=== PATIENT | female | born 1980 | race Hispanic/Latino ===

== ENCOUNTER 2019-07-03 14:38 | Emergency (ER) | payer OTHER ==
[2019-07-03] MEDS ORDERED: LIDOCAINE 1% MPF 5 ML VIAL ONE (15:05)
[2019-07-03] MEDS ORDERED: ONDANSETRON 4 MG (ODT) TAB ONE (15:06)
[2019-07-03] MEDS ORDERED: HYDROCODONE/APAP 10/325 TAB ONE (15:06)
[2019-07-03 15:42] LABS: Urine Blood NEGATIVE (NEG); Urine Glucose NEGATIVE (NEG); Urine Protein TRACE (NEG); Urine Specific Gravity >1.030 (1.005-1.030)
[2019-07-03] MEDS ORDERED: SMZ./TMP. 800/160 MG TABLET ONE (15:45)
[2019-07-03] MEDS ORDERED: DOXYCYCLINE 100 MG CAP PO ONE (15:45)
--- NOTE | 2019-07-03 15:47 | ER ---
Nurse's Notes [facility] Name: Jesica Nixon Age: 39 yrs Sex: Female : 1980 Arrival Date: 07/03/2019 Time: 14:41 Bed 9 Private MD: Diagnosis: Cutaneous abscess of buttock Presentation: 07/03 14:42 Presenting complaint: Patient states: "I have a cyst on the upper part of my butt sv cheeks.". Transition of care: patient was not received from another setting of care. Onset of symptoms is unknown. Risk Assessment: Do you want to hurt yourself or someone else? Patient reports no desire to harm self or others. Care prior to arrival: None. 14:42 Method Of Arrival: Ambulatory sv 14:42 Acuity: DONOVAN 3 sv 15:00 Initial Sepsis Screen: Does the patient meet any 2 criteria? No. Patient's initial tw2 sepsis screen is negative. Does the patient have a suspected source of infection? Yes: Skin breakdown/wound. Triage Assessment: 14:44 General: Appears in no apparent distress. uncomfortable, Behavior is calm, cooperative, sv appropriate for age. Pain: Complains of pain in buttocks. Neuro: Level of Consciousness is awake, alert, obeys commands, Gait is steady. Respiratory: Respiratory effort is even, unlabored. 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 - Social history:: Smoking status: . - Ebola Screening: : Patient denies travel to an Ebola-affected area in the 21 days before illness onset. - Family history:: not pertinent. Screenin:00 Abuse screen: Denies threats or abuse. Nutritional screening: No deficits noted. tw2 Tuberculosis screening: No symptoms or risk factors identified. Fall Risk None identified. Assessment: 14:50 General: Appears in no apparent distress. Behavior is calm, cooperative, appropriate tw2 for age. Pain: Complains of pain in gluteal cleft. Neuro: Level of Consciousness is awake, alert, obeys commands, Oriented to person, place, time, situation. Cardiovascular: Patient's skin is warm and dry. Respiratory: Airway is patent Respiratory effort is even, unlabored, Respiratory pattern is regular, symmetrical. GI: No signs and/or symptoms were reported involving the gastrointestinal system. : No signs and/or symptoms were reported regarding the genitourinary system. EENT: No signs and/or symptoms were reported regarding the EENT system. Derm: Reports increased pain. Musculoskeletal: Range of motion: intact in all extremities. 15:43 Reassessment: Patient appears in no apparent distress at this time. No changes from tw2 previously documented assessment. Patient and/or family updated on plan of care and expected duration. Pain level reassessed. Patient is alert, oriented x 3, equal unlabored respirations, skin warm/dry/pink. 16:11 Reassessment: Patient appears in no apparent distress at this time. No changes from tw2 previously documented assessment. Patient and/or family updated on plan of care and expected duration. Pain level reassessed. Patient is alert, oriented x 3, equal unlabored respirations, skin warm/dry/pink. Vital Signs: 14:43 BP 114 / 85; Pulse 96; Resp 16; Temp 98.4(O); Pulse Ox 100% ; Weight 87.54 kg; Height 5 sv ft. 5 in. (165.10 cm); 14:43 Body Mass Index 32.12 (87.54 kg, 165.10 cm) sv ED Course: 14:41 Patient arrived in ED. mr 14:43 Triage completed. sv 14:44 Arm band placed on. sv 14:57 Praneeth Chong MD is Attending Physician. shireen 14:59 Rosa Perez, YOVANNY is Primary Nurse. tw2 15:00 Placed in gown. Bed in low position. Side rails up X 1. Adult w/ patient. Warm blanket tw2 given. 15:42 No provider procedures requiring assistance completed. Assist provider with tw2 cardioversion Assist provider with eye exam served as corn shredder during visual examination of abscess on gluteal cleft. Patient did not have IV access during this emergency room visit. 15:46 Og Driver MD is Referral Physician. [facility] 15:47 Referral Physician role handed off by Og Driver MD [facility] 15:47 Og Driver MD is Referral Physician. shireen Administered Medications: 15:08 Drug: Zofran 4 mg Route: PO; tw2 15:34 Follow up: Response: No adverse reaction; Nausea is decreased tw2 15:09 Drug: [place] 10 mg-325 mg 1 tabs Route: PO; tw2 15:34 Follow up: Response: No adverse reaction; Pain is decreased; RASS: Alert and Calm (0) tw2 15:34 CANCELLED (md discretion): Lidocaine (1 %) 5 mg Infiltration once tw2 15:46 Drug: Doxycycline 200 mg Route: PO; tw2 16:11 Follow up: Response: No adverse reaction tw2 15:46 Drug: Bactrim (160 mg-800 mg (DS) 1 tablet Route: PO; tw2 16:11 Follow up: Response: No adverse reaction tw2 Outcome: 15:46 Discharge ordered by . shireen 16:11 Discharged to home ambulatory, with family. tw2 16:11 Condition: stable 16:11 Discharge instructions given to patient, family, Instructed on discharge instructions, follow up and referral plans. no drinking with medication, no driving heavy equipment, medication usage, wound care, Demonstrated understanding of instructions, follow-up care, medications, wound care, Prescriptions given X 3. 16:12 Patient left the ED. tw2 Signatures: Vanessa Will, RN RN Praneeth Johnson MD MD cha Rivera, Mary mr Wise, Tara RN RN tw2 Corrections: (The following items were deleted from the chart) 14:44 14:43 Pulse 96bpm; Resp 16bpm; Pulse Ox 100%; Temp 98.4F Oral; 87.54 kg; Height 5 ft. 5 sv in.; BMI: 32.1; sv
--- NOTE | 2019-07-03 15:48 | EDPHYS ---
Physician Documentation [facility] Name: Jesica Nixon Age: 39 yrs Sex: Female : 1980 Arrival Date: 07/03/2019 Time: 14:41 Bed 9 Private MD: ED Physician Praneeth Chong HPI: 07/03 15:43 This 39 yrs old Female presents to ER via Ambulatory with complaints of shireen Abscess. 15:43 The patient presents with an abscess of the . Description: The affected area is small, shireen moderate sized, confluent, draining. Onset: The symptoms/episode began/occurred 5 day(s) ago. Possible cause(s): unknown. Associated signs and symptoms: The patient has no apparent associated signs or symptoms. Severity of symptoms: At their worst the symptoms were mild, moderate, in the emergency department the symptoms are unchanged. The patient has not experienced similar symptoms in the past. 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 - Social history:: Smoking status: . - Ebola Screening: : Patient denies travel to an Ebola-affected area in the 21 days before illness onset. - Family history:: not pertinent. ROS: 15:43 Constitutional: Negative for fever, chills, and weight loss, Eyes: Negative for injury, shireen pain, redness, and discharge, ENT: Negative for injury, pain, and discharge, Neck: Negative for injury, pain, and swelling, Cardiovascular: Negative for chest pain, palpitations, and edema, Respiratory: Negative for shortness of breath, cough, wheezing, and pleuritic chest pain, Abdomen/GI: Negative for abdominal pain, nausea, vomiting, diarrhea, and constipation, Back: Negative for injury and pain, : Negative for injury, bleeding, discharge, and swelling, MS/Extremity: Negative for injury and deformity, Neuro: Negative for headache, weakness, numbness, tingling, and seizure, Psych: Negative for depression, anxiety, suicide ideation, homicidal ideation, and hallucinations, Allergy/Immunology: Negative for hives, rash, and allergies, Endocrine: Negative for neck swelling, polydipsia, polyuria, polyphagia, and marked weight changes, Hematologic/Lymphatic: Negative for swollen nodes, abnormal bleeding, and unusual bruising. 15:43 Skin: Positive for of the coccyx and gluteal cleft. Exam: 15:43 Constitutional: This is a well developed, well nourished patient who is awake, alert, shireen and in no acute distress. Head/Face: Normocephalic, atraumatic. Eyes: Pupils equal round and reactive to light, extra-ocular motions intact. Lids and lashes normal. Conjunctiva and sclera are non-icteric and not injected. Cornea within normal limits. Periorbital areas with no swelling, redness, or edema. ENT: Nares patent. No nasal discharge, no septal abnormalities noted. Tympanic membranes are normal and external auditory canals are clear. Oropharynx with no redness, swelling, or masses, exudates, or evidence of obstruction, uvula midline. Mucous membranes moist. Neck: Trachea midline, no thyromegaly or masses palpated, and no cervical lymphadenopathy. Supple, full range of motion without nuchal rigidity, or vertebral point tenderness. No Meningismus. Chest/axilla: Normal chest wall appearance and motion. Nontender with no deformity. No lesions are appreciated. Cardiovascular: Regular rate and rhythm with a normal S1 and S2. No gallops, murmurs, or rubs. Normal PMI, no JVD. No pulse deficits. Respiratory: Lungs have equal breath sounds bilaterally, clear to auscultation and percussion. No rales, rhonchi or wheezes noted. No increased work of breathing, no retractions or nasal flaring. Abdomen/GI: Soft, non-tender, with normal bowel sounds. No distension or tympany. No guarding or rebound. No evidence of tenderness throughout. Back: No spinal tenderness. No costovertebral tenderness. Full range of motion. MS/ Extremity: Pulses equal, no cyanosis. Neurovascular intact. Full, normal range of motion. Neuro: Awake and alert, GCS 15, oriented to person, place, time, and situation. Cranial nerves II-XII grossly intact. Motor strength 5/5 in all extremities. Sensory grossly intact. Cerebellar exam normal. Normal gait. Psych: Awake, alert, with orientation to person, place and time. Behavior, mood, and affect are within normal limits. 15:43 Skin: abscess, that is small, cellulitis, that is mild, induration, that is mild is noted. Vital Signs: 14:43 BP 114 / 85; Pulse 96; Resp 16; Temp 98.4(O); Pulse Ox 100% ; Weight 87.54 kg; Height 5 sv ft. 5 in. (165.10 cm); 14:43 Body Mass Index 32.12 (87.54 kg, 165.10 cm) sv MDM: 14:57 Patient medically screened. [facility] 15:45 Data reviewed: vital signs, nurses notes. [facility] 07/03 15:34 Order name: Urine Dipstick--Ancillary (enter results); Complete Time: 15:42 07/03 15:34 Order name: Urine --Ancillary (enter results); Complete Time: 15:42 07/03 15:06 Order name: I\T\D Setup; Complete Time: 15:06 tw2 Administered Medications: 15:08 Drug: Zofran 4 mg Route: PO; tw2 15:34 Follow up: Response: No adverse reaction; Nausea is decreased tw2 15:09 Drug: [place] 10 mg-325 mg 1 tabs Route: PO; tw2 15:34 Follow up: Response: No adverse reaction; Pain is decreased; RASS: Alert and Calm (0) tw2 15:34 CANCELLED (md discretion): Lidocaine (1 %) 5 mg Infiltration once tw2 15:46 Drug: Doxycycline 200 mg Route: PO; tw2 16:11 Follow up: Response: No adverse reaction tw2 15:46 Drug: Bactrim (160 mg-800 mg (DS) 1 tablet Route: PO; tw2 16:11 Follow up: Response: No adverse reaction tw2 Disposition: 07/03/19 15:46 Discharged to Home. Impression: Cutaneous abscess of buttock. - Condition is Stable. - Discharge Instructions: Skin Abscess, How to Take a Sitz Bath, Skin Abscess, [id number]. - Prescriptions for Tylenol- Codeine #3 300-30 mg Oral Tablet - take 2 tablet by ORAL route every 6 hours As needed; 30 tablet. Doxycycline Hyclate 100 mg Oral Tablet - take 1 tablet by ORAL route every 12 hours; 20 tablet. Bactrim DS 800- 160 mg Oral Tablet - take 1 tablet by ORAL route every 12 hours for 10 days; 20 tablet. - Medication Reconciliation Form, Thank You Letter, Antibiotic Education, Prescription Opioid Use, Work release form, Family Work Release form. - Follow up: Private Physician; When: 2 - 3 days; Reason: Recheck today's complaints, Continuance of care, Re-evaluation by your physician. Follow up: Og Driver MD; When: 2 - 3 days; Reason: Recheck today's complaints, Re-evaluation by your physician. Follow up: Og Driver MD; When: Tomorrow; Reason: Recheck today's complaints, Re-evaluation by your physician. - Problem is new. - Symptoms have improved. Signatures: Dispatcher [employer] EDVanessa Wiley RN RN Praneeth Johnson MD MD cha Wise, Tara, RN RN tw2 Corrections: (The following items were deleted from the chart) 15:34 15:06 Lidocaine (1 %) 5 mg Infiltration once ordered. tw2 tw2 15:34 15:34 Lidocaine (1 %) 5 mg Infiltration once ordered. tw2 tw2 15:47 15:46 07/03/2019 15:46 Discharged to Home. Impression: Cutaneous abscess of buttock. shireen Condition is Stable. Forms are Work release form, Family Work Release, Medication Reconciliation Form, Thank You Letter, Antibiotic Education, Prescription Opioid Use. Follow up: Private Physician; When: 2 - 3 days; Reason: Recheck today's complaints, Continuance of care, Re-evaluation by your physician. Follow up: Og Driver; When: 2 - 3 days; Reason: Recheck today's complaints, Re-evaluation by your physician. Problem is new. Symptoms have improved. shireen 16:12 15:47 07/03/2019 15:46 Discharged to Home. Impression: Cutaneous abscess of buttock. tw2 Condition is Stable. Forms are Work release form, Family Work Release, Medication Reconciliation Form, Thank You Letter, Antibiotic Education, Prescription Opioid Use. Follow up: Private Physician; When: 2 - 3 days; Reason: Recheck today's complaints, Continuance of care, Re-evaluation by your physician. Follow up: Og Driver; When: Tomorrow; Reason: Recheck today's complaints, Re-evaluation by your physician. Problem is new. Symptoms have improved. shireen
[2019-07-03 16:27] VITALS: BP 114/85; TEMP 98.4; O2SAT 100
== END 2019-07-03 16:12 | disposition home or self-care (01) ==
LOC: ER 14:38
DX: L02.31 Cutaneous abscess of buttock (principal)
CPT/HCPCS: 81003; 81025; 92960; 99284

== ENCOUNTER 2019-07-11 08:16 | Day surgery (SDC) | payer OTHER ==
--- NOTE | 2019-07-10 15:08 | RAD REPORT ---
EXAM DESCRIPTION: Vladislav Jules (2 Views)07/10/2019 2:42 pm CLINICAL HISTORY: Preop for cyst removal COMPARISON: None FINDINGS: The lungs appear clear of acute infiltrate. The heart is normal size IMPRESSION: No acute abnormalities displayed
[2019-07-10 15:14] LABS: Potassium 4.4 mmol/L (3.5-5.1)
[2019-07-10 15:31] LABS: Absolute Lymphocytes (CBC) 2.9 K/uL (0.7-4.9); Basophils % 0.4 % (0-1.3); Hematocrit 36.1 % (36.0-45.0); Lymphocytes % 40.8 % (15.3-44.8); MPV 9.8 fL (7.6-11.3)
--- NOTE | 2019-07-11 06:37 | EKG ---
Test Date: 2019-07-10 Test Time: 15:23:26 Alloy Weigher: KATHERINE MEASUREMENT RESULTS: Intervals: Rate: 75 MS: 134 QRSD: 78 QT: 360 QTc: 402 [place]: P: 21 MS: 134 QRS: 49 T: 30 INTERPRETIVE STATEMENTS: Normal sinus rhythm Low voltage QRS Borderline ECG No previous ECG available for comparison Electronically Signed On 07-11-19 06:36:39 [employer] OFFICER by Ariel Miller
[2019-07-11] MEDS ORDERED: Ringers Lactate 1,000 ML IV ONE ×2 (08:37→12:10)
[2019-07-11] MEDS ORDERED: CEFAZOLIN/SWI 1gm 1 GM/10 ML SYR ONE (09:29)
[2019-07-11] MEDS ORDERED: METHYLENE BLUE 0.5% 10 ML AMP ONE (10:14)
[2019-07-11] MEDS ORDERED: PROPOFOL 200 MG/20 ML VIAL IV ONE (10:22)
[2019-07-11] MEDS ORDERED: ROCURONIUM 50 MG/5 ML VIAL IV ONE (10:23)
[2019-07-11] MEDS ORDERED: LIDOCAINE 2% MPF 5 ML VIAL ONE (10:23)
[2019-07-11] MEDS ORDERED: ONDANSETRON 4 MG/2 ML VIAL ONE ×2 (10:24→13:42)
[2019-07-11] MEDS ORDERED: MIDAZOLAM HCL 2 MG/2 ML INJ ONE (10:32)
[2019-07-11] MEDS ORDERED: FENTANYL CITR 100 MCG/2 ML ONE (10:32)
[2019-07-11] MEDS ORDERED: SUCCINYLCHOLINE 20 MG/ML (10 ML) IV ONE (11:11)
[2019-07-11] MEDS ORDERED: GLYCOPYRROLATE 0.2 MG/ML SYR ONE (11:54)
[2019-07-11] MEDS ORDERED: NEOSTIGMINE 1 MG/ML -5 ML ONE (11:54)
--- NOTE | 2019-07-11 11:57 | P.BOP ---
Preoperative diagnosis: infected large complex pilonidal cyst Postoperative diagnosis: same Primary procedure: Wide excision of infected large complex pilonidal cyst [id number] Estimated blood loss: <10cc Specimen: cyst Findings: Large complex cavity with multiple tunnels Anesthesia: General Complications: None Drain(s): Other (wet to dry) Transferred to: Recovery Room Condition: Good
[2019-07-11] MEDS ORDERED: PROMETHAZINE 25 MG/ML VIAL ONE (12:08)
[2019-07-11] MEDS: HYDROMORPHONE HCL 1 MG/ML INJ ONE ×2 (12:25→12:31)
[2019-07-11] MEDS ORDERED: ONDANSETRON 4 MG/2 ML VIAL IV ONE (13:45)
[2019-07-11 14:14] VITALS: BP 101/70; TEMP 98.5; O2SAT 98
--- NOTE | 2019-07-12 03:21 | OP ---
Surgeon: Benito Jones MD Diagnosis: Infected large complex pilonidal cyst. Procedure: Wide excision of infected large complex pilonidal cyst. Disposition: Home. Activity: As tolerated. No heavy lifting. Followup: Follow up in my office in 1 week. Call for appointment [phone]. Keep area dry for 24 ho urs, then may take shower dressings off. Wet-to-dry dressing, normal saline. The family, I talked t o them they feel comfortable doing that. Medications: See prescription. HM/MODL Voice ID: [id number] Report ID: [id number]
--- NOTE | 2019-07-12 03:27 | OP ---
Date of Procedure: 07/11/2019 Surgeon: Benito Jones MD Preoperative Diagnosis: Infected large complex pilonidal cyst. Postoperative Diagnosis: Infected large complex pilonidal cyst. Procedures: Wide excision of infected large complex pilonidal cyst 6 x 6 x 4 cm. Estimated Blood Loss: Less than 10 mL. Specimen: Cyst. Findings: Large complex cavity with multiple tunnels. Anesthesia: General plus local. Indications: This is the case of a 39-year-old patient with above diagnosis. Fully explained the be nefits, alternatives, and risks of wide excision of infected cyst, which include but not limited to i nfection, bleeding, damage to adjacent structures as complication, recurrence, NH, and even . S he also understands this may not relieve the symptoms. She might need more than one surgical interve ntion. She understood, signed a consent. She understands also, she will require wound care wet-to-d ry for the next several months. Description Of Procedure: Patient brought to the operating room, placed in supine position anesthesi a was done without complication. The patient was placed in prone position with proper protection. T he sacral and buttock area were prepped and draped in sterile fashion. We injected some methylene bl ue with a small catheter to the openings that all the way down several centimeters, althou gh does not involve the anus. Once we made an incision, noted this was a complex abscess with multip le tunnels we proceed to remove all that area leaving a large cavity behind 6 x 6 x 4 cm. Hemostasis obtained after irrigation was done and the area was packed with wet-to-dry dressing. Patient tolera piotr the procedure well. Patient was sent to recovery in stable condition. Sponge counts and instrum ent counts were correct. MARK/NUHA Voice ID: [id number] Report ID: [id number]
--- OUTSIDE RECORDS SUMMARY | 2019-07-16 00:29 | XMS REPORT ---
:1980 [facility] Address [address] [place] [address] Dr. Llamas [address] [place] [id number] Care Team Providers Name Role Phone Unavailable Unavailable Unavailable Problems This patient has no known problems. Allergies, Adverse Reactions, Alerts This patient has no known allergies or adverse reactions. Medications This patient has no known medications.
== END 2019-07-11 14:28 | disposition home or self-care (01) ==
LOC: OR 08:16
PROVIDERS: ATTEND Surgery
PROC: 0JB90ZZ Excision of Buttock Subcutaneous Tissue and Fascia, Open Approach (ICD-10-PCS; principal; 2019-07-11 11:00)
DX: L05.91 Pilonidal cyst without abscess (principal); Z82.49 Family history of ischemic heart disease and other diseases of the circulatory system
CPT/HCPCS: 93005; 87070; 85025; 80048; 36415; 87205; 84703; 88304; 87075; 71046; 11772; J2704; J2550; J0330; J2250; J3010; J1170; J2710; J0690; J7120 ×2; J2405 ×3

== ENCOUNTER 2019-08-29 16:57 | Emergency (ER) | payer OTHER ==
--- OUTSIDE RECORDS SUMMARY | 2019-08-29 16:59 | XMS REPORT ---
:1980 [facility] Address [address] [place] [address] Dr. Llamas [address] [place] [id number] Care Team Providers Name Role Phone Unavailable Unavailable Unavailable Problems This patient has no known problems. Allergies, Adverse Reactions, Alerts This patient has no known allergies or adverse reactions. Medications This patient has no known medications.
--- NOTE | 2019-08-29 17:27 | EDPHYS ---
Physician Documentation [facility] Name: Jesica Nixon Age: 39 yrs Sex: Female : 1980 Arrival Date: 08/29/2019 Time: 17:00 Bed 26 Private MD: ED Physician Imtiaz Oropeza HPI: 08/29 17:59 This 39 yrs old Female presents to ER via Ambulatory with complaints of snw Infection. 17:59 Onset: The symptoms/episode began/occurred suddenly. Associated signs and symptoms: snw Pertinent positives: malodorous wound. It is unknown whether or not the patient has had similar symptoms in the past. The patient has been recently seen by a physician: with similar presenting complaints, wound vac placed three days ago. Historical: - Allergies: 17:33 No Known Allergies; tr5 - Home Meds: 17:33 Pinon 7.5-325 mg Oral tab [Active]; tr5 - Immunization history:: Adult Immunizations up to date. - Social history:: Smoking status: Patient/guardian denies using tobacco. - Ebola Screening: : No symptoms or risks identified at this time. ROS: 17:58 Constitutional: Negative for fever, chills, and weight loss, Eyes: Negative for injury, snw pain, redness, and discharge, ENT: Negative for injury, pain, and discharge, Neck: Negative for injury, pain, and swelling, Cardiovascular: Negative for chest pain, palpitations, and edema, Respiratory: Negative for shortness of breath, cough, wheezing, and pleuritic chest pain, Abdomen/GI: Negative for abdominal pain, nausea, vomiting, diarrhea, and constipation, Back: Negative for injury and pain, : Negative for injury, bleeding, discharge, and swelling, MS/Extremity: Negative for injury and deformity, Neuro: Negative for headache, weakness, numbness, tingling, and seizure, Psych: Negative for depression, anxiety, suicide ideation, homicidal ideation, and hallucinations. 17:58 Skin: Positive for wound becoming malodorous. Exam: 17:27 Constitutional: This is a well developed, well nourished patient who is awake, alert, snw and in no acute distress. Head/Face: Normocephalic, atraumatic. Eyes: Pupils equal round and reactive to light, extra-ocular motions intact. Lids and lashes normal. Conjunctiva and sclera are non-icteric and not injected. Cornea within normal limits. Periorbital areas with no swelling, redness, or edema. ENT: Nares patent. No nasal discharge, no septal abnormalities noted. Tympanic membranes are normal and external auditory canals are clear. Oropharynx with no redness, swelling, or masses, exudates, or evidence of obstruction, uvula midline. Mucous membranes moist. Neck: Trachea midline, no thyromegaly or masses palpated, and no cervical lymphadenopathy. Supple, full range of motion without nuchal rigidity, or vertebral point tenderness. No Meningismus. Chest/axilla: Normal chest wall appearance and motion. Nontender with no deformity. No lesions are appreciated. Cardiovascular: Regular rate and rhythm with a normal S1 and S2. No gallops, murmurs, or rubs. Normal PMI, no JVD. No pulse deficits. Respiratory: Lungs have equal breath sounds bilaterally, clear to auscultation and percussion. No rales, rhonchi or wheezes noted. No increased work of breathing, no retractions or nasal flaring. Abdomen/GI: Soft, non-tender, with normal bowel sounds. No distension or tympany. No guarding or rebound. No evidence of tenderness throughout. Skin: Warm, dry with normal turgor. Normal color with no rashes, no lesions, and no evidence of cellulitis. MS/ Extremity: Pulses equal, no cyanosis. Neurovascular intact. Full, normal range of motion. Neuro: Awake and alert, GCS 15, oriented to person, place, time, and situation. Cranial nerves II-XII grossly intact. Motor strength 5/5 in all extremities. Sensory grossly intact. Cerebellar exam normal. Normal gait. Psych: Awake, alert, with orientation to person, place and time. Behavior, mood, and affect are within normal limits. 17:27 Back: pain, that is mild, of the sacrum, pilonidal cyst/abscess I\T\D per Dr. Jones in July 2019. Wound vac placed three days ago. Area looks healthy, dc is green and malodorous. Pt has not been on abx since . Vital Signs: 17:33 BP 128 / 72; Pulse 95; Resp 17; Temp 97.8(O); Pulse Ox 97% on R/A; Weight 89.81 kg; tr5 Height 5 ft. 5 in. (165.10 cm); 17:33 Body Mass Index 32.95 (89.81 kg, 165.10 cm) tr5 MDM: 17:17 Patient medically screened. snw 17:51 Data reviewed: vital signs, nurses notes. Data interpreted: Pulse oximetry: on room air snw is 97 %. Interpretation: normal. Counseling: I had a detailed discussion with the patient and/or guardian regarding: the historical points, exam findings, and any diagnostic results supporting the discharge/admit diagnosis, the need for outpatient follow up, to return to the emergency department if symptoms worsen or persist or if there are any questions or concerns that arise at home. Special discussion: Based on the history and exam findings, there is no indication for further emergent testing or inpatient evaluation. I discussed with the patient/guardian the need to see the primary care provider for further evaluation of the symptoms. Administered Medications: 17:54 Drug: Cipro 500 mg Route: PO; tr5 Disposition: 08/30 07:42 Co-signature as Attending Physician, Imtiaz Oropeza MD I agree with the assessment and kdr plan of care. Disposition: 08/29/19 17:26 Discharged to Home. Impression: Infected pilonidal draining wound. - Condition is Stable. - Discharge Instructions: Incision and Drainage of a Pilonidal Cyst, Care After. - Prescriptions for Cipro 500 mg Oral Tablet - take 1 tablet by ORAL route every 12 hours for 7 days; 14 tablet. - Medication Reconciliation Form, Thank You Letter, Antibiotic Education, Prescription Opioid Use form. - Follow up: Emergency Department; When: As needed; Reason: Fever > 102 F, Worsening of condition. Follow up: Private Physician; When: Tomorrow; Reason: Recheck today's complaints, Continuance of care, Re-evaluation by your physician. Signatures: Imtiaz Oropeza MD MD kdr Therrien, Shelly, HEEL BREASTER-C HEEL BREASTER-Kasiaw Dominick Reagan RN RN tr5 Corrections: (The following items were deleted from the chart) 08/29 18:37 17:26 08/29/2019 17:26 Discharged to Home. Impression: Infected pilonidal draining tr5 wound. Condition is Stable. Forms are Medication Reconciliation Form, Thank You Letter, Antibiotic Education, Prescription Opioid Use. Follow up: Emergency Department; When: As needed; Reason: Fever > 102 F, Worsening of condition. Follow up: Private Physician; When: Tomorrow; Reason: Recheck today's complaints, Continuance of care, Re-evaluation by your physician. snw
[2019-08-29] MEDS ORDERED: CIPROFLOXACIN HCL 500 MG TAB ONE (17:48)
--- NOTE | 2019-08-29 18:42 | ER ---
Nurse's Notes [facility] Name: Jesica Nixon Age: 39 yrs Sex: Female : 1980 Arrival Date: 08/29/2019 Time: 17:00 Bed 26 Private MD: Diagnosis: Infected pilonidal draining wound Presentation: 08/29 17:29 Presenting complaint: Patient states: "I have had this wound vac for 3 days now and i tr5 noticed that when i changed the drain, it smells bad. I let my nurse know and she said it could be a sign of infection, and i should go get it looked at.". Transition of care: patient was not received from another setting of care. Onset of symptoms. Risk Assessment: Do you want to hurt yourself or someone else? Patient reports no desire to harm self or others. Initial Sepsis Screen: Does the patient meet any 2 criteria? No. Patient's initial sepsis screen is negative. Does the patient have a suspected source of infection? No. Patient's initial sepsis screen is negative. Care prior to arrival: None. 17:29 Method Of Arrival: Ambulatory tr5 17:29 Acuity: DONOVAN 3 tr5 Historical: - Allergies: 17:33 No Known Allergies; tr5 - Home Meds: 17:33 Redfox 7.5-325 mg Oral tab [Active]; tr5 - Immunization history:: Adult Immunizations up to date. - Social history:: Smoking status: Patient/guardian denies using tobacco. - Ebola Screening: : No symptoms or risks identified at this time. Screenin:40 Abuse screen: Denies threats or abuse. Nutritional screening: No deficits noted. tr5 Tuberculosis screening: No symptoms or risk factors identified. Fall Risk None identified. Assessment: 17:40 General: Appears in no apparent distress. Behavior is calm, cooperative, appropriate tr5 for age. Pain: Denies pain. Neuro: Level of Consciousness is awake, alert, obeys commands, Oriented to person, place, time, Director Of Science are equal bilaterally. Cardiovascular: Heart tones present Capillary refill < 3 seconds. Respiratory: Airway is patent Respiratory effort is even, unlabored, Respiratory pattern is regular, symmetrical. GI: No signs and/or symptoms were reported involving the gastrointestinal system. : No signs and/or symptoms were reported regarding the genitourinary system. EENT: No signs and/or symptoms were reported regarding the EENT system. Derm: Reports Foul smelling draining coming from wound vac to sacral area. Musculoskeletal: No signs and/or symptoms reported regarding the musculoskeletal system. Vital Signs: 17:33 BP 128 / 72; Pulse 95; Resp 17; Temp 97.8(O); Pulse Ox 97% on R/A; Weight 89.81 kg; tr5 Height 5 ft. 5 in. (165.10 cm); 17:33 Body Mass Index 32.95 (89.81 kg, 165.10 cm) tr5 ED Course: 17:00 Patient arrived in ED. mr 17:16 [facility]C [facility]. snw 17:16 Imtiaz Oropeza MD is Attending Physician. snw 17:28 Dominick Reagan, YOVANNY is Primary Nurse. tr5 17:30 Triage completed. tr5 17:33 Arm band placed on Patient placed. tr5 17:40 Bed in low position. Call light in reach. Side rails up X 1. tr5 18:35 No provider procedures requiring assistance completed. Patient did not have IV access tr5 during this emergency room visit. Administered Medications: 17:54 Drug: Cipro 500 mg Route: PO; tr5 Outcome: 17:26 Discharge ordered by . snw 18:35 Discharged to home ambulatory. tr5 18:35 Condition: stable 18:35 Discharge instructions given to patient, Instructed on discharge instructions, follow up and referral plans. Demonstrated understanding of instructions, follow-up care. 18:37 Patient left the ED. tr5 Signatures: Estefani Burns FNP-C FNP-Kathie Chaves Dominick Reagan, RN RN tr5
[2019-08-29 19:17] VITALS: BP 128/72; TEMP 97.8; O2SAT 97
== END 2019-08-29 18:37 | disposition home or self-care (01) ==
LOC: ER 16:57
DX: L05.91 Pilonidal cyst without abscess (principal); L08.9 Local infection of the skin and subcutaneous tissue, unspecified
CPT/HCPCS: 99283

== ENCOUNTER 2021-01-30 06:43 | Day surgery (SDC) | payer OTHER ==
[2021-01-30 07:26] LABS: Specific Gravity 1.025 (1.005-1.030)
[2021-01-30] MEDS ORDERED: Ringers Lactate 1,000 ML IV ONE (07:28)
[2021-01-30] MEDS ORDERED: CEFOXITIN/SWI 1gm 1 GM/10 ML SYR ONE (07:29)
[2021-01-30] MEDS ORDERED: propofoL 200 MG/20 ML VIAL IV ONE (07:45)
[2021-01-30] MEDS ORDERED: FENTANYL CITR 100 MCG/2 ML ONE (07:45)
[2021-01-30] MEDS ORDERED: ROCURONIUM 50 MG/5 ML VIAL IV ONE (07:45)
[2021-01-30] MEDS ORDERED: LIDOCAINE 1% MPF 5 ML VIAL ONE (07:45)
[2021-01-30] MEDS ORDERED: MIDAZOLAM HCL 2 MG/2 ML INJ ONE (07:45)
[2021-01-30] MEDS ORDERED: BUPIVACAINE 0.25% PF 30 ML VIAL ONE (07:54)
[2021-01-30] MEDS ORDERED: SCOPOLAMINE HYDROBROMIDE PATCH TD ONE ×2 (07:55→08:14)
[2021-01-30] MEDS ORDERED: KETOROLAC 30 MG/ML INJ ONE (08:59)
[2021-01-30] MEDS ORDERED: dexAMETHasone 10 MG/ML VIAL ONE (08:59)
[2021-01-30] MEDS ORDERED: ONDANSETRON 4 MG/2 ML VIAL ONE (09:01)
[2021-01-30] MEDS ORDERED: GLYCOPYRROLATE 0.2 MG/ML SYR ONE (09:05)
--- NOTE | 2021-01-30 09:27 | P.OP ---
Preoperative diagnosis: Chronic Cholecystitis / Biliary Dyskinesia Postoperative diagnosis: Chronic Cholecystitis / Biliary Dyskinesia Primary procedure: Laparoscopic cholecystectomy Secondary procedure: Intraoperative Indocyanin Green (ICG) cholangiography Anesthesia: GETA + Local Estimated blood loss: <5cc Specimen: Gallbladder Findings: floppy blue dome GB, ICG confirmed anatomy Complications: None Transferred to: Recovery Room Condition: Good
[2021-01-30] MEDS ORDERED: NEOSTIGMINE 1 MG/ML -5 ML ONE (09:34)
[2021-01-30] MEDS ORDERED: PROMETHAZINE INJ 25 MG/ML AMP ONE (09:51)
[2021-01-30] MEDS ORDERED: HYDROMORPHONE HCL 1 MG/ML INJ ONE (10:20)
[2021-01-30 10:51] VITALS: O2SAT 100
--- NOTE | 2021-01-30 11:18 | OP ---
Date of Procedure: 01/30/2021 Surgeon: Og Driver MD, Preoperative Diagnosis: Chronic cholecystitis/biliary dyskinesia. Postoperative Diagnosis: Chronic cholecystitis/biliary dyskinesia. Procedures Performed: 1. Laparoscopic cholecystectomy. 2. Intraoperative indocyanine green cholangiography. Anesthesia: General endotracheal plus local with 0.25% Marcaine. Estimated Blood Loss: Less than 5 mL. Specimen: Gallbladder. Findings: 1. Distended gallbladder. 2. ICG confirmed anatomy. Complications: None. Disposition: The patient was transferred to recovery room in good condition. Procedure In Detail: After informed consent was obtained, the patient was brought to the operating room, prepped and draped in the usual sterile fashion after adequate anesthesia achieved. A supraumbilical area was anesthetized with 0.25% Marcaine, sharply incised. A 5 mm 0-degree optical trocar was introduced in the abdomen without evidence of complication. Insufflation was obtained to 15 mmHg at this time. There was no injury to vital structures upon entry to the abdomen. At this point, the patient was positioned head up position. Two additional trocars were placed, 1 in the epigastrium, 1 in the right upper quadrant. Both of these were similarly anesthetized and sharply incised. 5 mm trocars were placed under direct visualization without evidence of complication. The umbilical trocar was upsized to a 12 mm under direct visualization without evidence of complication. The patient received indocyanine green injection 30 minutes prior to anesthesia induction and at this point, we grasped the patient's gallbladder with ratcheted grasper placing towards the patient's right shoulder and dissected down towards the Robyn pouch of the gallbladder. The 2 structures were identified, as both cystic duct and cystic artery. Both of these were encircled and skeletonized at this point. The critical view of safety was obtained. I confirmed with ICG cholangiography at this point using the [employer] cholangiography imaging device/SpCamPlex technology. When the anatomy was confirmed, I was able to view the common-cystic duct junction. The cystic duct confluence to the gallbladder was skeletonized quite well. At this point, I placed double-titanium clips on the proximal side and singly on the distal side of both cystic duct and cystic artery. I then ligated these 2 structures with Endo Nehemiah and removed the gallbladder from the hepatic fossa without evidence of complication. The gallbladder was then placed in the EndoCatch bag, removed through the umbilical trocar and sent off for pathological examination. The abdomen was completely insufflated back at this point and the area was copiously irrigated multiple times until complete clear. Hemostasis was achieved without any additional hemostatic maneuvers at this point. Clips were found to be in good anatomic position without any leakage. At this point, I then suctioned out the remaining effluent. The patient was positioned back in neutral position. The remaining effluent was suctioned out at this point. 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 I then removed the umbilical trocar, closed the umbilical trocar site using a Zeferino-Emanuel suture passer with a 0 Vicryl in interrupted fashion with good approximation tissues. The remaining trocars were then removed under direct visualization completely desufflating the abdomen under direct visualization. Trocars were removed. All skin incisions were copiously irrigated and closed with 4-0 Monocryl in a running fashion. Dermabond placed over top. The patient tolerated the procedure well without evidence of complication and transferred to PACU in good condition. All counts were correct at the end of the case. GURVINDER/NUHA Voice ID: [id number] Report ID: [id number] LONA
[2021-01-30] MEDS ORDERED: HYDROCODONE/APAP 7.5/325 MG TAB ONE (11:39)
[2021-01-30 16:07] VITALS: BP 102/62; TEMP 97.8
== END 2021-01-30 12:25 | disposition home or self-care (01) ==
LOC: OR 06:43
PROVIDERS: ATTEND Surgery
PROC: BF50200 Other Imaging of Bile Ducts using Fluorescing Agent, Indocyanine Green Dye, Intraoperative (ICD-10-PCS; 2021-01-30)
PROC: 0FT44ZZ Resection of Gallbladder, Percutaneous Endoscopic Approach (ICD-10-PCS; principal; 2021-01-30 08:00)
DX: K80.10 Calculus of gallbladder with chronic cholecystitis without obstruction (principal); K82.8 Other specified diseases of gallbladder; N39.0 Urinary tract infection, site not specified; Z20.822 Contact with and (suspected) exposure to COVID-19
CPT/HCPCS: 81025; 88304; 47562; 74300; U0002; J2704; J2550; J2250; J3010; J1100; J1170; J2710; J7120; J2405